=== PATIENT | female | born 1990 | race Two or more races ===

== ENCOUNTER 2019-01-28 09:57 | Emergency (ER) | payer MEDICAID, OTHER, SELFPAY ==
[~2019-01-28] VITALS: Ht 160 cm; Wt 90.0 kg
[2019-01-28] MEDS ORDERED: KETOROLAC 30 MG/1 ML ONE (10:20)
[2019-01-28] MEDS ORDERED: KETOROLAC 30 MG/1 ML IM ONE (10:30)
--- NOTE | 2019-01-28 10:30 | NUR ---
PT PLACED ON ALL ROOM MONITORING DEVICES. WARM BLANKET PROVIDED, CALL LIGHT WITHIN REACH. TORADOL GIVEN PER ERP ORDER FOR SHARP, STERNAL CP REPRODUCIBLE WITH PALPATION. PT ALSO REPORTS OF NAUSEA AND SOB ASSOCIATED WITH CP. PT UPDATED ON POC.
--- NOTE | 2019-01-28 10:48 | NUR ---
PT BACK FROM IMAGING NOW
[2019-01-28 10:51] LABS: BASOPHILS # (AUTO) 0.07 x10^3/uL (0-0.1); BASOPHILS % (AUTO) 1 % (0-1); EOSINOPHILS # (AUTO) 0.19 x10^3/uL (0-0.4); EOSINOPHILS % (AUTO) 3 % (1-7); LYMPHOCYTES # (AUTO) 2.55 x10^3/uL (1-3.4); LYMPHOCYTES % (AUTO) 35 % (22-44); MD NO; MEAN CORPUSCULAR HEMOGLOBIN 28.9 pg (27.0-34.8); MEAN CORPUSCULAR HGB CONC 32.6 g/dL (32.4-35.8); MEAN CORPUSCULAR VOLUME 88.7 fL (80-100); MEAN PLATELET VOLUME 10.3 fL (7.4-10.4); MONOCYTES # (AUTO) 0.43 x10^3/uL (0.2-0.8); MONOCYTES % (AUTO) 6 % (2-9); NEUTROPHILS # (AUTO) 4.07 x10^3/uL (1.8-6.8); NEUTROPHILS % (AUTO) 56 % (42-75); PLATELET COUNT 208 x10^3/uL (130-400); RED BLOOD COUNT 4.34 x10^6/uL (3.82-5.3); RED CELL DISTRIBUTION WIDTH 12.9 % (9.6-15.2)
--- NOTE | 2019-01-28 10:51 | NUR ---
TASK RN: PT BACK FROM IMAGING. PT BACK ON CARDIAC, NIBP AND O2 MONITORING VSS AT THIS TIME.
[2019-01-28 10:58] LABS: ALBUMIN 3.6 g/dL (3.4-5.0); ANION GAP 5 mmol/L (5-15); CALCIUM 9.1 mg/dL (8.5-10.1); CHLORIDE 108 mmol/L (98-107); CREATININE 0.85 mg/dL (0.55-1.02)
[2019-01-28 11:02] LABS: TROPONIN I < 0.015 ng/mL (0.000-0.045)
--- NOTE | 2019-01-28 11:10 | NUR ---
ALL RESULTS BACK, PT FOR RECHECK.
[2019-01-28 11:58] VITALS: BP 116/71
== END 2019-01-28 12:00 | disposition home or self-care (01) ==
LOC: ED 10:55
DX: R07.89 Other chest pain (principal); M25.511 Pain in right shoulder; R11.2 Nausea with vomiting, unspecified; E78.00 Pure hypercholesterolemia, unspecified; F17.210 Nicotine dependence, cigarettes, uncomplicated; F15.10 Other stimulant abuse, uncomplicated
CPT/HCPCS: 36415; 71046; 80048; 82040; 84484; 85025; 93005; 96372; 99284; J1885